=== PATIENT | male | born 1995 | race Two or more races ===

== ENCOUNTER 2017-03-25 17:43 | Emergency (ER) | payer OTHER ==
[~2017-03-25] VITALS: Ht 172.7 cm; Wt 99.8 kg
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
--- NOTE | 2017-03-25 18:25 | NUR ---
MARCELA SHERIFF AT BEDSIDE FOR EVAL.
--- NOTE | 2017-03-25 18:39 | NUR ---
RADIOLOGY AT BEDSIDE FOR L SHOULDER XRAY.
[2017-03-25 19:41] VITALS: BP 132/80
== END 2017-03-25 19:42 | disposition home or self-care (01) ==
LOC: ER 17:45
DX: S42.002A Fracture of unspecified part of left clavicle, initial encounter for closed fracture (principal); J45.909 Unspecified asthma, uncomplicated; V19.9XXA Pedal cyclist (driver) (passenger) injured in unspecified traffic accident, initial encounter; Y92.488 Other paved roadways as the place of occurrence of the external cause; Y99.8 Other external cause status; Y93.55 Activity, bike riding
CPT/HCPCS: 73000-TC; 73030-TC; A4606; Z7610

== ENCOUNTER 2017-04-11 11:04 | Emergency (ER) | payer MEDICAID, OTHER ==
[~2017-04-11] VITALS: Ht 172.7 cm; Wt 99.8 kg
[2017-04-11 11:04] VITALS: BP 126/77
== END 2017-04-11 12:34 | disposition home or self-care (01) ==
LOC: ER 11:10
DX: S42.91XA Fracture of right shoulder girdle, part unspecified, initial encounter for closed fracture (principal); J45.909 Unspecified asthma, uncomplicated; X58.XXXA Exposure to other specified factors, initial encounter; Y93.89 Activity, other specified; Y92.89 Other specified places as the place of occurrence of the external cause; Y99.8 Other external cause status
CPT/HCPCS: 99281; A4606; Z7610; Z7502